=== PATIENT | female | born 1975 | race Caucasian/White ===

== ENCOUNTER 2021-04-25 10:14 | Emergency (ER) | payer OTHER ==
[~2021-04-25] VITALS: Ht 160 cm; Wt 79.4 kg
[2021-04-25 10:21] VITALS: BP 128/85
[2021-04-25] MEDS ORDERED: ZOLOFT50 M1 PO (10:29)
[2021-04-25] MEDS ORDERED: VALIUM10 MG PO (10:29)
== END 2021-04-25 11:11 | disposition home or self-care (01) ==
LOC: ER 10:14
DX: S52.592A Other fractures of lower end of left radius, initial encounter for closed fracture (principal); Z79.899 Other long term (current) drug therapy; W01.0XXA Fall on same level from slipping, tripping and stumbling without subsequent striking against object, initial encounter; Y93.89 Activity, other specified; Y92.89 Other specified places as the place of occurrence of the external cause; Y99.8 Other external cause status